=== PATIENT | male | born 1980 | race African-American/Black ===

== ENCOUNTER 2017-11-12 22:13 | Emergency (ER) | payer SELFPAY | END 2017-11-12 22:59 | disposition home or self-care (01) | LOC: ER 22:13 | DX: F16.10 Hallucinogen abuse, uncomplicated (principal); Z88.0 Allergy status to penicillin | CPT/HCPCS: 93005; 99283-25 ==

== ENCOUNTER 2019-02-09 17:00 | Emergency (ER) | payer SELFPAY ==
[~2019-02-09] VITALS: Ht 172.7 cm; Wt 163.3 kg
[2019-02-09 17:53] VITALS: BP 210/92
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
== END 2019-02-09 18:45 | disposition home or self-care (01) ==
LOC: ER 17:00
DX: S09.90XA Unspecified injury of head, initial encounter (principal); J02.9 Acute pharyngitis, unspecified; E11.9 Type 2 diabetes mellitus without complications; I10 Essential (primary) hypertension; Z88.0 Allergy status to penicillin; Y04.0XXA Assault by unarmed brawl or fight, initial encounter; Y93.89 Activity, other specified; Y92.89 Other specified places as the place of occurrence of the external cause; Y99.8 Other external cause status
CPT/HCPCS: 70450; 72125; 87070; 87880; 99284